=== PATIENT | female | born 1955 | race Caucasian/White ===

== ENCOUNTER 2016-08-10 07:36 | Day surgery (SDC) | payer OTHER, BC ==
[2016-08-09 09:18] VITALS: BMI 26.6
[2016-08-10] MEDS ORDERED: PROPOFOL 20 ML ONE ×2 (07:39)
[2016-08-10 09:43] VITALS: PULSE 71
[2016-08-10 09:47] VITALS: BP 108/67; TEMP 97.8
== END 2016-08-10 09:47 | disposition home or self-care (01) ==
LOC: FASU-ENDO 07:36 → MERGE 08:30 → FASU-ENDO 09:47
PROVIDERS: ATTEND Internal Medicine Gastroenterology
PROC: 0DJD8ZZ Inspection of Lower Intestinal Tract, Via Natural or Artificial Opening Endoscopic (ICD-10-PCS; principal; 2016-08-10 08:39)
DX: Z12.11 Encounter for screening for malignant neoplasm of colon (principal)